=== PATIENT | female | born 1980 | race Caucasian/White ===

== ENCOUNTER 2023-02-10 08:19 | Day surgery (SDC) | payer MEDICAID ==
[~2023-02-10] VITALS: Ht 180.3 cm; Wt 81.6 kg
[2023-02-10] MEDS ORDERED: MIDAZOLAM HCL 5 MG/5 ML VIAL ONE (08:40)
[2023-02-10] MEDS ORDERED: fentaNYL CITRATE/PF 100 MCG/2 ML AMP ONE (08:54)
[2023-02-10] MEDS ORDERED: DIPHENHYDRAMINE INJ 50 MG/ML VIAL ONE (08:54)
[2023-02-10] MEDS ORDERED: IOPAMIDOL 50 ML VIAL IV ONE (08:55)
[2023-02-10] MEDS ORDERED: DEXAMETHASONE SOD PHOSPHATE 4 MG/ML VIAL ONE (08:55)
[2023-02-10] MEDS ORDERED: LIDOCAINE 2%, 20 ML MDV ONE (08:55)
[2023-02-10] MEDS ORDERED: NORMAL SALINE 10 ML VIAL ONE (08:55)
[2023-02-10 11:07] LABS: HCG,QUAL RESULT NEGATIVE (NEGATIVE)
[2023-02-10 17:48] VITALS: BP_SYST 124
== END 2023-02-10 14:12 | disposition home or self-care (01) ==
LOC: SDS 08:19 → SMU 08:19 → SDS 14:12
PROVIDERS: ATTEND Internal Medicine
DX: M50.83 Other cervical disc disorders, cervicothoracic region (principal); M51.9 Unspecified thoracic, thoracolumbar and lumbosacral intervertebral disc disorder; M79.10 Myalgia, unspecified site; Z88.5 Allergy status to narcotic agent; Z79.899 Other long term (current) drug therapy; Z20.822 Contact with and (suspected) exposure to COVID-19
CPT/HCPCS: 62321; 87426; 84703; 36415; J1100; J1200; J2001; J2250; J3010; Q9967; 76000